=== PATIENT | male | born 1965 | race Caucasian/White ===

== ENCOUNTER 2021-12-13 11:21 | Emergency (ER) | payer OTHER, SELFPAY ==
[2021-12-13 11:30] VITALS: BP 131/92; PULSE 70; RESP 18; TEMP 36.9; O2SAT 100
[2021-12-13 11:42] VITALS: BP 131/92; PULSE 70; RESP 18; TEMP 36.9; O2SAT 100
--- NOTE | 2021-12-13 12:00 | ED.EAR ---
HPI - Ear Problem General Chief complaint: Ear Stated complaint: ear pain Time Seen by Provider: 12/13/21 12:00 Source: patient Mode of arrival: ambulatory Limitations: no limitations History of Present Illness HPI Narrative: 56-year-old male presented for complaint of pressure to right ear for about 1 month. He states he thinks he has an earwax impaction. They have used candle wax, syringe with water, and hydrogen peroxide without any relief. He endorses decreased hearing. Denies headache, dizziness, sore throat, fever or chills. Denies history of cerumen impactions in the past. MD Complaint: ear pain Related Data Home Medications Medication Instructions Recorded Confirmed simvastatin 20 mg DIRECTED 12/13/21 12/13/21 Allergies Allergy/AdvReac Type Severity Reaction Status Date / Time No Known Allergies Allergy Verified 12/13/21 11:42 Review of Systems Review of Systems: CONSTITUTIONAL: Denies malaise, chills, sweats, or fever. EYES: Denies visual changes, redness, or discharge. ENT: Denies rhinorrhea, congestion, sinus pain, and sore throat. Reports ear pain CARDIOVASCULAR: Denies chest pain, palpitations, or edema. RESPIRATORY: Denies cough. Denies dyspnea. GASTROINTESTINAL: Denies abdominal pain, nausea, vomiting, diarrhea SKIN: Denies rash or itching. MUSCULOSKELETAL: Denies myalgia. NEUROLOGIC: Denies headache. All systems reviewed & are unremarkable except as noted in HPI and below PMFSH Comments At time of signature, agree with nursing past medical, surgical, social and family history. There is no relevant family history pertinent to the presenting complaint Exam Narrative: GENERAL: Well-appearing, well-nourished, and in no acute distress. HEAD: Normocephalic EYES: PERRLA, conjunctivae clear ENT: Nares clear. Mucous membranes moist. TM pearly burgos with dull light reflex left; Right ear with cerumen impaction; no tragal tenderness. NECK: Supple. No lymphadenopathy CHEST: Clear to auscultation, breath sounds equal. No wheezing, rhonchi, rales, or stridor. No respiratory distress, speaks in full sentences. HEART: Regular rate and rhythm. No murmur heard. SKIN: Warm, dry, no rash. NEURO: Alert and oriented x3. PSYCH: Normal mood and affect Course Course Emergency Course: Patient is aware of diagnosis, understands and agrees to treatment plan. Anticipatory guidance given. Patient agrees to follow-up as directed and is aware of reasons to seek care at the emergency department. Portions of this record may have been created with voice recognition software Level of Care: Express Care Visit Vital Signs Vital signs: Vital Signs Temperature 98.4 F 12/13/21 11:30 Pulse Rate 70 12/13/21 11:30 Respiratory Rate 18 12/13/21 11:30 Blood Pressure 131/92 H 12/13/21 11:30 Pulse Oximetry 100 12/13/21 11:30 Temperature 98.4 F 12/13/21 11:42 Pulse Rate 70 12/13/21 11:42 Respiratory Rate 18 12/13/21 11:42 Blood Pressure 131/92 H 12/13/21 11:42 Pulse Oximetry 100 12/13/21 11:42 Reviewed Procedures Ear Wax Removal Right Ear: Ear Wax Removal Date: 12/13/21 Ear Wax Removal Time: 12:22 Cerumenolytic Used: other (Hydrogen peroxide and warm water) Results: Re-examined: some cerumen remains and removal reattempted Ear Canal Exam: atraumatic Patient Tolerated Procedure: well Complications: no problems Technique: ear canal irrigated and ear canal curetted Medical Decision Making MDM Narrative Medical decision making narrative: Differential diagnosis considered: Vega virus, strep pharyngitis, allergic rhinitis, upper respiratory tract infection, sinusitis, rhinosinusitis, nasopharyngitis. viral pharyngitis, otitis media, otitis externa, eustachian tube dysfunction, foreign body, cerumen impaction. Exam findings show no acute concerns or changes; patient is non-toxic appearing and is in no distress. Patient is appropriate for outpatient tr
== END 2021-12-13 12:38 | disposition home or self-care (01) ==
PROVIDERS: Emergency Provider Nurse Practitioner Family; PCP Internal Medicine
DX: H61.21 Impacted cerumen, right ear (principal); E78.00 Pure hypercholesterolemia, unspecified
CPT/HCPCS: 69210; 99212; G0463

== ENCOUNTER 2022-04-13 09:01 | Emergency (ER) | payer OTHER, SELFPAY ==
[2022-04-13 09:06] VITALS: BP 121/83; PULSE 70; RESP 20; TEMP 36.7; O2SAT 100
--- NOTE | 2022-04-13 09:41 | ED.URI ---
HPI - URI/Sore Throat General Chief Complaint: Upper Respiratory Infection Stated Complaint: Chest Congestion/Cough Time Seen by Provider: 04/13/22 09:41 Source: patient and RN notes reviewed Mode of arrival: ambulatory Limitations: no limitations History of Present Illness HPI Narrative: 56-year-old male presents concern for 1 week history of chest congestion, nasal congestion, cough. Reports body aches. He reports trouble breathing . He reports he has been taking DayQuil and NyQuil with little relief. He denies any known sick contacts. He denies nausea,, diarrhea. MD elicited complaint: cough and sore throat Related Data Home Medications Medication Instructions Recorded Confirmed simvastatin 20 mg tablet 20 mg DIRECTED 12/13/21 04/13/22 trazodone 100 mg tablet 1 tablet PO HS 04/13/22 04/13/22 Allergies Allergy/AdvReac Type Severity Reaction Status Date / Time No Known Allergies Allergy Verified 04/13/22 09:41 Review of Systems Review of Systems: CONSTITUTIONAL: Reports malaise. Denies chills, sweats, or fever. EYES: Denies visual changes, redness, or discharge. ENT: Reports rhinorrhea, congestion. Denies sinus pain, otalgia and sore throat. CARDIOVASCULAR: Denies chest pain, palpitations, or edema. RESPIRATORY: Reports cough, dyspnea. GASTROINTESTINAL: Denies abdominal pain, nausea, vomiting, diarrhea SKIN: Denies rash or itching. MUSCULOSKELETAL: Reports myalgia. NEUROLOGIC: Denies headache. All systems reviewed & are unremarkable except as noted in HPI and below PMFSH Comments At time of signature, agree with nursing past medical, surgical, social and family history. There is no relevant family history pertinent to the presenting complaint Exam Narrative: GENERAL: Well-appearing, well-nourished, and in no acute distress. HEAD: Normocephalic EYES: PERRLA, conjunctivae clear ENT: Nares clear, turbinates edematous and erythematous, clear discharge. Mucous membranes moist. TM pearly burgos with dull light reflex bilaterally; no tragal tenderness. Oropharynx not erythematous without lesions. Tonsils not enlarged and without exudate, no drooling, no hoarseness, no trismus, uvula midline. NECK: Supple. No lymphadenopathy CHEST: Breath sounds diminished throughout. No wheezing, rhonchi, rales, or stridor. No respiratory distress, speaks in full sentences. HEART: Regular rate and rhythm. No murmur heard. SKIN: Warm, dry, no rash. NEURO: Alert and oriented x3. PSYCH: Normal mood and affect Course Course Emergency Course: Patient is aware of diagnosis, understands and agrees to treatment plan. Anticipatory guidance given. Patient agrees to follow-up as directed and is aware of reasons to seek care at the emergency department. Portions of this record may have been created with voice recognition software Level of Care: Express Care Visit Reevaluation(s) Reevaluation #1: Reevaluation after DuoNeb, aeration improved, patient reports difficulty taking a deep breath symptom is improved Date: 04/13/22 Time: 10:14 Vital Signs Vital signs: Vital Signs Temperature 98.0 F 04/13/22 09:06 Pulse Rate 70 04/13/22 09:06 Respiratory Rate 20 04/13/22 09:06 Blood Pressure 121/83 04/13/22 09:06 Pulse Oximetry 100 04/13/22 09:06 Oxygen Delivery Room Air 04/13/22 09:06 Temperature 98.0 F 04/13/22 09:06 Pulse Rate 70 04/13/22 09:06 Respiratory Rate 20 04/13/22 09:06 Blood Pressure 121/83 04/13/22 09:06 Pulse Oximetry 100 04/13/22 09:06 Oxygen Delivery Room Air 04/13/22 09:06 Reviewed. MDM - URI/Sore Throat MDM Narrative Medical decision making narrative: Differential diagnosis considered: Vega virus, strep pharyngitis, allergic rhinitis, upper respiratory tract infection, sinusitis, rhinosinusitis, nasopharyngitis. viral pharyngitis, otitis media, otitis externa, pneumonia, bronchitis, viral cough syndrome, viral syndrome, and influenza. Exam findings show no acute concer
[2022-04-13] MEDS: ALBUTEROL SULFATE NEB 2.5 MG/3 ML INH INHALATION (09:55)
[2022-04-13] MEDS: IPRATROPIUM BR 0.02% INH SOLN 0.5 MG/2.5 ML VIAL INHALATION (09:55)
== END 2022-04-13 10:20 | disposition home or self-care (01) ==
PROVIDERS: Emergency Provider Nurse Practitioner; PCP Internal Medicine
DX: J06.9 Acute upper respiratory infection, unspecified (principal); E78.00 Pure hypercholesterolemia, unspecified
CPT/HCPCS: 99213; G0463